=== PATIENT | male | born 1940 ===

== ENCOUNTER 2025-03-31 06:51 | Day surgery (SDC) | payer OTHER ==
[2025-03-22 09:16] VITALS: BP 200/60
[~2025-03-31] VITALS: Ht 167.6 cm; Wt 79.8 kg
[~2025-03-31 06:51] MED LIST: CARDURA XL4 MG PO; COZAAR100 MG PO; DITROPAN XL; ECOTRIN81 MG PO; HYDROCHLOROTHIA50 MG; INDERAL LA80 MG; ISOSORBIDE MONO30 MG; JARDIANCE10 MG PO; METFORMIN HCL500 MG; NEURONTIN800 MG PO; NORVASC5 MG PO; OMEGA-31000 MG PO; PEPCID20 MG
[2025-03-31] MEDS ORDERED: MORPHINE SULFATE 4 MG/ML VIAL IV ONE (11:35)
== END 2025-03-31 12:50 | disposition home or self-care (01) ==
LOC: CIR.AMB 06:51
PROVIDERS: ATTEND Surgery Surgery of the Hand
DX: M65.841 Other synovitis and tenosynovitis, right hand (principal)